=== PATIENT | female | born 1955 | race Caucasian/White ===

== ENCOUNTER → 2017-09-02 | Outpatient (CLI) | payer OTHER ==
[~2017-09-02] MED LIST: SERTRALINE HCL50 MG PO
== END ==
LOC: MAMMO 12:19
PROVIDERS: ATTEND Internal Medicine
DX: Z12.31 Encounter for screening mammogram for malignant neoplasm of breast (principal)

== ENCOUNTER 2019-06-06 05:23 | Inpatient (IN) | payer MEDICARE ==
[2019-05-31 15:24] LABS: BASOPHILS % 0.3 % (0.0-1.0); EOSINOPHILS # (AUTO) 0.1 (0.0-0.4); EOSINOPHILS % 0.8 % (0.0-6.0); HEMOGLOBIN 12.9 g/dL (12.0-16.0); LYMPHOCYTES # (AUTO) 1.5 (1.0-3.2); MEAN CORPUSCULAR HEMOGLOBIN 30.4 pg (28-32); MEAN CORPUSCULAR HGB CONC 33.1 g/dL (31-35); MONOCYTES # (AUTO) 0.6 (0.2-0.8); MONOCYTES % 9.2 % (4.4-11.3); NEUTROPHILS # (AUTO) 4.2 (2.1-6.9); NEUTROPHILS % 65.5 % (38.7-80.0); PLATELET COUNT 234 x10e3/uL (140-360); RED BLOOD COUNT 4.24 x10e6/uL (3.6-5.1)
[~2019-06-06] VITALS: Ht 167.6 cm; Wt 134.7 kg
[~2019-06-06 05:23] MED LIST changes: +AMLODIPINE BESYL5 MG PO; +ATORVASTATIN CA10 MG PO; +HYDRALAZINE HCL25 MG PO; +LORATADINE10 MG PO; +MULTI-VITAMIN1 EACH PO; +SOY ISOFLAVONES40 MG PO
--- OUTSIDE RECORDS SUMMARY | 2019-06-06 05:26 | XMS REPORT ---
[facility] Address Unknown Phone Unavailable Care Team Providers Care Camp Coordinator Name Role Phone PANCHTIO HIRSCH Unavailable Unavailable Geoffrey HIRSCH Unavailable Unavailable Problems This patient has no known problems. Allergies, Adverse Reactions, Alerts This patient has no known allergies or adverse reactions. Medications This patient has no known medications. Results Test Description Test Time Test Comments Text Results Atomic Results Result Comments MAMMOGRAPHY DIGITAL SCR BILAT 2018-10-18 11:24:00 [place] [address] Patient Name: MARII PICKETT MR #: [id number] : 1955 Age/Sex: 63/F Req #: [id number] Adm Physician: Ordered by: PANCHITO HIRSCH MD Report #: [id number] Location: MAMMO Room/Bed: Procedure: [id number] MG/MAMMOGRAPHY DIGITAL SCR BILAT Exam Date: 10/18/18 Exam Time: 1030 REPORT STATUS: Signed #[id number] - [id number] #BILATERAL DIGITAL SCREENING MAMMOGRAM WITH CAD: 10/18/2018 CLINICAL: Routine screening. Comparison is made to exams dated: 09/02/2017 mammogram and 08/28/2016 mammogram - [facility]. Current study contains 12 films. The tissue of both breasts is predominantly fatty. Current study was also evaluated with a Computer Aided Detection (CAD) system. There are benign calcifications in both breasts. There also are benign lymph nodes in both breasts. No significant masses, calcifications, or other findings are seen in either breast. There has been no significant interval change. IMPRESSION: BENIGN There is no mammographic evidence of malignancy. A 1 year screening mammogram is recommended. The patient will be notified by letter of the results. Wilman smith/tatyana:11/01/2018 07:58:42 Tumbling Instructor: Nai Lovell RT(Viji)(Geoffrey), [facility] letter sent: Compared to Prior B9 Mammogram BI- RADS: 2 Benign Dictated By: WILMAN HARVEY DO 7 Transcribed By: TATYANA on 11/01/18757 COPY TO: PANCHITO HIRSCH MD MAMMOGRAM DIGITAL SCR BI [place] [address] Patient Name: MARII PICKETT MR #: [id number] : 1955 Age/Sex: 61/F Req #: [id number] [facility] Physician: Ordered by: JIMENA HIRSCH MD Report #: [id number] Location: MAMMO Room/Bed: Procedure: [id number] MG/MAMMOGRAM DIGITAL SCR BI Exam Date: Exam Time: REPORT STATUS: Signed #[id number] - MGSCRNBI #BILATERAL DIGITAL SCREENING MAMMOGRAM WITH CAD: 09/02/2017 CLINICAL: Routine screening. Comparison is made to exams dated: 08/28/2016 mammogram - [facility], 03/17/2014 mammogram, 03/22/2013 mammogram and 09/17/2011 mammogram - [facility]. Current study contains 11 films. The tissue of both breasts is predominantly fatty. Current study was also evaluated with a Computer Aided Detection (CAD) system. There are benign calcifications in both breasts. There also are benign lymph nodes in both breasts. No significant masses, calcifications, or other findings are seen in either breast. There has been no significant interval change. IMPRESSION: BENIGN There is no mammographic evidence of malignancy. A 1 year screening mammogram is recom mended. The patient will be notified by letter of the results. Wilman smith/tatyana:09/08/2017 11:04:54 Tumbling Instructor: Nai LUND)(M), [facility] letter sent: Compared to Prior B9 Mammogram BI-RADS: 2 Benign Dictated By: WILMAN HARVEY DO 1104 Transcribed By: TATYANA on 09/08/17 1104 COPY TO: JIMENA HIRSCH MD
[2019-06-06] MEDS ORDERED: BUPIVACAINE 0.25% 30ML SDV INJ ONE (06:08)
[2019-06-06] MEDS ORDERED: LEVOFLOXACIN 500MG/D5W 100ML 100 ML IV ONE (06:19)
[2019-06-06] MEDS ORDERED: SODIUM CHLORIDE 0.9% 1000ML 1,000 ML IV SCH (06:35)
[2019-06-06] MEDS ORDERED: ONDANSETRON HCL INJ 2MG/ML 2ML 2 MG/ML VIAL IV PRN ×2 (06:45→09:30)
[2019-06-06] MEDS ORDERED: MORPHINE SULFATE 2 MG/ML SYR 1ML IV PRN (06:45)
[2019-06-06] MEDS ORDERED: LIDOCAINE HCL (LTA) 4 ML SOLN ONE (06:47)
[2019-06-06] MEDS ORDERED: SUGAMMADEX SODIUM 200 MG/2 ML VIAL IV ONE (06:47)
[2019-06-06] MEDS ORDERED: METOCLOPRAMIDE HCL 10 MG/2ML VIAL ONE (08:09)
[2019-06-06] MEDS ORDERED: FENTANYL CITRATE/PF 100MCG/2 ML INJ ONE ×2 (08:15→20:16)
--- NOTE | 2019-06-06 09:04 | NUR ---
Received patient via bed from PACU. AAOX3 to time, person, place. Respirations even and unlabored. O2 2L NC. Trochar sites clean, dry, and intact. Oriented patient to room. Instructed to use call light for assistance. Voiced understanding.
--- NOTE | 2019-06-06 09:15 | NUR ---
Patient c/o chest pain. Bp 190/86 P 76.Orders for EKG received. aware of patient's status.
[2019-06-06 09:30] VITALS: BP 190/86
[2019-06-06] MEDS ORDERED: HYDRALAZINE HCL 20 MG/ML VIAL IV PRN (09:30)
[2019-06-06] MEDS ORDERED: PROMETHAZINE 12.5MG/ NACL 0.9% 12.5 MG/50 ML BAG IV PRN (09:30)
[2019-06-06] MEDS: SCOPOLAMINE 1.5 MG PATCH TOP SCH ×2 (09:38→10:00)
[2019-06-06] MEDS ORDERED: ASPIRIN 81 MG CHEW TAB PO ONE (09:45)
[2019-06-06] MEDS ORDERED: LABETALOL HCL 5 MG/ML 20ML VIAL IV ONE (10:00)
[2019-06-06] MEDS ORDERED: FUROSEMIDE INJ 10 MG/ML 4 ML VIAL IV ONE (10:00)
[2019-06-06 10:09] LABS: BASOPHILS % 0.3 % (0.0-1.0); EOSINOPHILS # (AUTO) 0.3 (0.0-0.4); HEMATOCRIT 38.8 % (34.2-44.1); HEMOGLOBIN 12.7 g/dL (12.0-16.0); LYMPHOCYTES # (AUTO) 0.9 (1.0-3.2); LYMPHOCYTES % 9.5 % (18.0-39.1); MEAN CORPUSCULAR HGB CONC 32.7 g/dL (31-35); MEAN CORPUSCULAR VOLUME 91.5 fL (81-99); MONOCYTES # (AUTO) 0.1 (0.2-0.8); MONOCYTES % 1.5 % (4.4-11.3); NEUTROPHILS # (AUTO) 8.2 (2.1-6.9); NEUTROPHILS % 85.3 % (38.7-80.0); PLATELET COUNT 229 x10e3/uL (140-360); RED BLOOD COUNT 4.24 x10e6/uL (3.6-5.1); RED CELL DISTRIBUTION WIDTH 13.1 % (11.7-14.4)
[2019-06-06 10:45] LABS: ANION GAP 15.2 mmol/L (8-16); CALCIUM 9.3 mg/dL (8.4-10.2); CREATININE, SERUM 1.04 mg/dL (0.57-1.11); POTASSIUM 3.2 mmol/L (3.5-5.1)
[2019-06-06 10:52] LABS: CREATINE KINASE MB 3.9 ng/mL (0-5.0)
[2019-06-06] MEDS ORDERED: FAMOTIDINE 20 MG/2 ML VIAL IV SCH (11:00)
[2019-06-06 11:08] VITALS: BP 165/93
[2019-06-06] MEDS ORDERED: FAMOTIDINE INJ 40 MG in SODIUM CHLORIDE 0.9% 100 ML IV SCH (12:00)
[2019-06-06] MEDS ORDERED: SODIUM CHLORIDE 0.9% 250ML 250 ML ONE (12:46)
--- NOTE | 2019-06-06 13:00 | NUR ---
Patient crying and saying "my legs started cramping with this IV medication. Please turn it off." Medication stopped. Will continue to monitor
--- NOTE | 2019-06-06 13:30 | NUR ---
Patient states "As soon as you stopped IV medications. I stopped cramping." Paged to notify of patient's status.
[2019-06-06] MEDS ORDERED: POTASSIUM CHLORIDE 20 MEQ TAB CR PO ONE (14:30)
--- NOTE | 2019-06-06 14:30 | NUR ---
aware of patient's status. See orders
[2019-06-06 15:18] VITALS: BP 134/70
[2019-06-06] MEDS: HYDRALAZINE HCL 25 MG TAB PO SCH (15:56)
--- NOTE | 2019-06-06 16:05 | Operative Report ---
DATE OF PROCEDURE: 06/06/2019 SURGEON: Liam Sullivan MD PREOPERATIVE DIAGNOSES: 1. Morbid obesity, BMI 46. 2. Hypertension. 3. Dyslipidemia. POSTOPERATIVE DIAGNOSES: 1. Morbid obesity, BMI 46. 2. Hypertension. 3. Dyslipidemia. PREOPERATIVE INDICATION: Treat disease, prevent complications related to comorbid conditions of obesity. PROCEDURE: Laparoscopic vertical sleeve gastrectomy. ANESTHESIA: General. GOVERNMENT CLERK: Edwin Smart, surgical pathologist (needed due to complexity of case). FLUIDS: 300 mL of crystalloid. EBL: 20 mL. DRAINS: None. COMPLICATIONS: None. SPECIMEN: Partial stomach. GRAFTS: None. FINDINGS: 1. Normal upper GI anatomy. 2. Negative intraoperative EGD leak test. PROCEDURE IN DETAIL: The patient was brought to the operating room and was intubated under general endotracheal anesthesia. She was sterilely prepped and draped in the usual fashion. A preprocedure pause was performed identifying the patient, use of preoperative antibiotics, intended procedure, and staff surgeon. Access was gained via a 5 mm left subcostal incision using a Veress needle. Abdomen was insufflated. Four additional trocars were placed in the standard position. A liver retractor was used to expose the stomach. I then mobilized the greater curvature of the stomach with the [place] LigaSure device from about 4 cm proximal to the pyloric valve to the left shiva of the diaphragm. An adult sized endoscope was then inserted along the lesser curvature of the stomach. The greater curve of the stomach was resected with five firings of a 60 mm purple load Covidien stapling device. An intraoperative EGD leak test was performed, no leaks were identified. The specimen was removed through the right periumbilical port site. The port site was closed with 0-Vicryl sutures using a Misha-Evie technique in a [id number]-az-[id number] fashion. We then verified hemostasis, removed the liver retractor and desufflated the abdomen. Incision sites were closed with 4-0 Monocryl suture in a subcuticular fashion. Dermabond dressing was applied. Bupivacaine 0.25% was used both at the preperitoneal incision sites. The patient tolerated the procedure well. Type of wound was type 2, clean, contaminated. MD JL Talbot/CINDY /[id number]
--- NOTE | 2019-06-06 16:39 | Consultation ---
DATE OF CONSULTATION: The patient is on observation, June 06, 2019. PRIMARY CARE PHYSICIAN: Yuliya Sherman MD. CHIEF COMPLAINT: The patient is status post laparoscopic sleeve gastrectomy. HISTORY OF PRESENT ILLNESS: The patient is a [id number], morbidly obese, status post laparoscopic sleeve gastrectomy. The patient has some epigastric discomfort. The patient is otherwise stable. She has increase in blood pressure due to increasing pain and anxious. She also is morbidly obese. Baseline weight on record is 289 pounds with BMI of 47. The patient is otherwise stable. PAST MEDICAL HISTORY: Dyslipidemia, severe obesity, BMI of 48, hypertension. PAST SURGICAL HISTORY: Hysterectomy and appendectomy. SOCIAL HISTORY: The patient does not smoke or use alcohol. No regular drug. ALLERGIES: PENICILLIN, LATEX, AND LIDOCAINE. HOME MEDICATIONS: The patient is on: 1. Norvasc. 2. Lipitor. 3. Hydralazine. 4. Loratadine. 5. Multivitamin. 6. Zoloft. 7. Soy isoflavones. PHYSICAL EXAMINATION: VITAL SIGNS: Temperature is 98, blood pressure 142/55, pulse rate 74, and respirations 20. GENERAL: The patient is not in acute distress, although she is having some epigastric discomfort. HEENT: Normocephalic, atraumatic. Anicteric. NECK: Supple grossly. PULMONARY: Diminished breath sounds secondary to effort. CARDIOVASCULAR: S1, S2. Regular rate and rhythm. ABDOMEN: Status post laparoscopic sleeve gastrectomy. Some tenderness, but no guarding. Morbidly obese. EXTREMITIES: No cyanosis or edema. NEUROLOGIC: No gross focal deficit. Moving all extremities. LABORATORY DATA: That was done in May 31, Hematology is normal. WBC is 6.4, hemoglobin 12.9, hematocrit is 39, platelets are 234. IMPRESSION: 1. Status post today laparoscopic gastric sleeve gastrectomy. 2. Epigastric discomfort more of musculoskeletal, could be postop pain. 3. Baseline hypertension and dyslipidemia including severe obesity, reason for the patient's gastric sleeve. PLAN: Obtain lab work today. Resume some home medication. The patient may take them orally once is cleared to take medication oral intake. Hydralazine IV p.r.n. Zofran IV p.r.n. Phenergan IV p.r.n. as well. Pepcid 40 mg IV q.12 hours. Pain medication postop. We will obtain lab work today. We will monitor the patient closely. MD DUKE Goff/CINDY /[id number]
[2019-06-06] MEDS ORDERED: LIDOCAINE HCL 2% LOCAL INJ 5 ML SDV VIAL INJ ONE (18:56)
[2019-06-06] MEDS ORDERED: ONDANSETRON HCL INJ 2MG/ML 2ML 2 MG/ML VIAL ONE (18:56)
[2019-06-06] MEDS ORDERED: PROPOFOL IV EMULSION 10 MG/ML 20 ML VIAL ONE (18:56)
[2019-06-06] MEDS ORDERED: ROCURONIUM BROMIDE 10 MG/ML 5ML VIAL ONE (18:56)
[2019-06-06] MEDS ORDERED: LIDOCAINE HCL 2% JELLY 5 ML TUBE ONE (18:56)
[2019-06-06] MEDS ORDERED: EPHEDRINE SULFATE INJ 50 MG/10 ML SYR ONE (18:56)
[2019-06-06] MEDS ORDERED: DEXAMETHASONE SOD PHOS INJ 4 MG/ML VIAL ONE (18:56)
[2019-06-06] MEDS ORDERED: SEVOFLURANE INHAL SOLN 250 ML PEN BTL ONE (18:56)
[2019-06-06] MEDS ORDERED: ACETAMINOPHEN 1000 MG/100 ML IV ONE (18:56)
--- NOTE | 2019-06-06 19:10 | NUR ---
Report given to oncoming nurse of patient's status. Sitting on recliner. AAOX4 to time, person, place, situation. Respirations even and unlabored. call light within reach.
[2019-06-06 20:00] VITALS: BP_SYST 134; BP_SYST 149; BP_DIAS 65; BP_DIAS 70
[2019-06-06] MEDS ORDERED: MIDAZOLAM HCL 2 MG/2 ML VIAL ONE (20:16)
[2019-06-06] MEDS ORDERED: SOY ISOFLAVONE PO SCH (21:00)
[2019-06-06] MEDS ORDERED: SERTRALINE HCL 50 MG TAB PO SCH (21:00)
[2019-06-06] MEDS: SERTRALINE HCL 100 MG TAB PO SCH (21:00)
[2019-06-06] MEDS: ENOXAPARIN SOD INJ 40 MG/0.4 ML SYR SC SCH (21:00)
[2019-06-07 04:00] VITALS: BP 131/61
[2019-06-07 06:02] LABS: BASOPHILS % 0.3 % (0.0-1.0); EOSINOPHILS # (AUTO) 0.2 (0.0-0.4); EOSINOPHILS % 2.9 % (0.0-6.0); HEMATOCRIT 37.9 % (34.2-44.1); HEMOGLOBIN 12.3 g/dL (12.0-16.0); LYMPHOCYTES # (AUTO) 1.5 (1.0-3.2); LYMPHOCYTES % 20.5 % (18.0-39.1); MEAN CORPUSCULAR HEMOGLOBIN 29.9 pg (28-32); MEAN CORPUSCULAR HGB CONC 32.5 g/dL (31-35); MEAN CORPUSCULAR VOLUME 92.2 fL (81-99); MONOCYTES # (AUTO) 0.7 (0.2-0.8); MONOCYTES % 9.2 % (4.4-11.3); NEUTROPHILS % 66.4 % (38.7-80.0); PLATELET COUNT 243 x10e3/uL (140-360); RED BLOOD COUNT 4.11 x10e6/uL (3.6-5.1); RED CELL DISTRIBUTION WIDTH 13.3 % (11.7-14.4)
[2019-06-07 06:18] LABS: ALBUMIN 3.9 g/dL (3.5-5.0); ALBUMIN/GLOBULIN RATIO 1.1 (0.8-2.0); ANION GAP 15.1 mmol/L (8-16); CALCIUM 9.6 mg/dL (8.4-10.2); CREATININE, SERUM 1.35 mg/dL (0.57-1.11); MAGNESIUM 1.9 MG/DL (1.3-2.1); PHOSPHORUS 3.8 MG/DL (2.3-4.7); POTASSIUM 4.1 mmol/L (3.5-5.1)
[2019-06-07] MEDS ORDERED: HYDROCODONE/APAP 7.5MG-325MG 1 EA TAB PO PRN (07:00)
[2019-06-07 07:20] VITALS: BP 150/68
[2019-06-07 07:37] VITALS: BP 150/68
--- NOTE | 2019-06-07 07:48 | NUR ---
Progress Note S: No complaints O: AF, VSS General- no distress Abd- soft, incisions c/d/i A/P: POD 1, s/p lap sleeve gastrectomy -Clears, ambulate, IS, OOB to chair -DC home today -Diet and f/u instructions given to patient
[2019-06-07] MEDS ORDERED: LACTATED RINGER'S 1,000 ML ONE (08:07)
[2019-06-07] MEDS: HYDRALAZINE HCL 25 MG TAB PO SCH (08:18)
[2019-06-07] MEDS: ENOXAPARIN SOD INJ 40 MG/0.4 ML SYR SC SCH (08:19)
[2019-06-07] MEDS ORDERED: LACTATED RINGER'S 500 ML IV ONE (08:45)
[2019-06-07] MEDS ORDERED: LORATADINE 10 MG TAB PO SCH (09:00)
[2019-06-07] MEDS ORDERED: AMLODIPINE BESYLATE 5 MG TAB PO SCH (09:00)
[2019-06-07] MEDS ORDERED: MULTIVITAMINS/MINERALS TAB PO SCH (09:00)
[2019-06-07] MEDS ORDERED: TYLENOL WITH C1 EACH PO (09:35)
[2019-06-07] MEDS ORDERED: ZOFRAN4 MG PO (09:36)
[2019-06-07 13:49] VITALS: BP 143/62
--- NOTE | 2019-06-07 14:05 | NUR ---
Right hand IV discontinued. No signs of infiltration noted. 2x2 gauze and tape placed. Taken via wheelchair to personal car by PCT. Accompanied by . AAOX4 to time, person, place, situation. Respirations even and unlabored. Trochar sites clean, dry, and intact. Discharge instructions, rx, and all personal belongings taken with patient.
--- NOTE | 2019-06-07 14:15 | NUR ---
Visit made by the Spiritual Care Department Pastoral Visitor, Estela Fermin. PV provided pastoral presence, prayer, hospitality, and supportive listening. Pastoral Visitor informed pt/family of the scope of Business Technology Professor Services and availability. LUL NOVOA Application Development Team Lead Spiritual Care Department O: [phone] Pager: [phone] ([phone] calling from)
== END 2019-06-07 14:15 | disposition home or self-care (01) | DRG 621 ==
LOC: OR 05:23 → OBSVTOIN 08:24 → PACU V 08:24 → MED/SURG 08:54
PROVIDERS: ADMIT Surgery; ATTEND Surgery
PROC: 0DB64Z3 Excision of Stomach, Percutaneous Endoscopic Approach, Vertical (ICD-10-PCS; principal; 2019-06-06 06:30)
DX: E66.01 Morbid (severe) obesity due to excess calories (principal); Z68.42 Body mass index [BMI] 45.0-49.9, adult; I10 Essential (primary) hypertension; E78.5 Hyperlipidemia, unspecified
CPT/HCPCS: 36415; 80048; 80053; 82550; 82553; 83735; 84100; 84484; 85025; 93005; J0360; J1100; J1650; J1940; J1956; J2001; J2250; J2270; J2405; J2765; J3010; J7050; J7120; J7121

== ENCOUNTER → 2019-11-22 | Outpatient (CLI) | payer MEDICARE ==
[~2019-11-22] MED LIST changes: +TYLENOL WITH C1 EACH PO; +ZOFRAN4 MG PO
--- NOTE | 2019-11-22 15:00 | Diagnostic Imaging Report ---
EXAM: Pelvic Ultrasound HISTORY: ^PELVIC PAIN COMPARISON: None. TECHNIQUE: Transabdominal grayscale ultrasound of the pelvis with color Doppler ultrasound. FINDINGS: UTERUS: Status post hysterectomy. OVARIES/ADNEXA: Right ovary not visualized due to patient body habitus/overlying bowel gas. Reported left oophorectomy. PELVIS: No free fluid. IMPRESSION: 1. Status post hysterectomy and left oophorectomy. 2. Right ovary not visualized due to patient body habitus/overlying bowel gas. Signed by: Fam Vaughan MD on 11/22/2019 2:56 PM
--- NOTE | 2019-11-22 15:01 | Diagnostic Imaging Report ---
HISTORY: ^ABDOMEN PAIN COMPARISON: None. TECHNIQUE: Ultrasound examination of the abdomen was performed with spectral and color Doppler imaging. FINDINGS: Limited evaluation due to body habitus. Liver: The liver is normal in size and echogenicity. No focal lesions. The main portal vein measures 0.7 cm. Biliary: No stones. No sludge, pericholecystic fluid or wall thickening. Negative sonographic Padilla's sign. Common bile duct measures 0.4 cm. No intrahepatic biliary ductal dilatation. Spleen: No splenomegaly. Pancreas: Visualized portions are unremarkable. Kidneys: The kidneys are normal in size without hydronephrosis nor sonographically evident solid mass lesion. Midline Vessels: Visualized portions of the IVC and aorta are unremarkable. Peritoneum: No free fluid. IMPRESSION: Normal exam. Signed by: Fam Vaughan MD on 11/22/2019 2:58 PM
== END ==
LOC: US 12:40
PROVIDERS: ATTEND Internal Medicine
DX: Z12.31 Encounter for screening mammogram for malignant neoplasm of breast (principal); R10.9 Unspecified abdominal pain; R10.2 Pelvic and perineal pain
CPT/HCPCS: 76700; 76856; 77067

== ENCOUNTER → 2020-10-11 | Outpatient (CLI) | payer MEDICARE | LOC: RAD 11:00 | PROVIDERS: ATTEND Internal Medicine | DX: R05 Cough (principal); J40 Bronchitis, not specified as acute or chronic | CPT/HCPCS: 71046 ==

== ENCOUNTER → 2022-05-27 | Outpatient (CLI) | payer MEDICARE | LOC: US 09:07 | PROVIDERS: ATTEND Surgery | DX: R10.11 Right upper quadrant pain (principal) | CPT/HCPCS: 76705 ==